=== PATIENT | male | born 1970 | race Caucasian/White ===

== ENCOUNTER → 2023-11-01 15:07 | Outpatient (REF) | payer OTHER, SELFPAY | LOC: RAD 15:07 | PROVIDERS: ATTENDING PHYSICIAN Family Medicine | DX: K57.32 Diverticulitis of large intestine without perforation or abscess without bleeding (principal) | CPT/HCPCS: 74178; Q9967 ==

== ENCOUNTER → 2024-02-19 12:21 | Outpatient (REF) | payer OTHER, SELFPAY | LOC: RAD 12:21 | PROVIDERS: ATTENDING PHYSICIAN Internal Medicine Gastroenterology; FAMILY PHYSICIAN Family Medicine | DX: R10.9 Unspecified abdominal pain (principal) | CPT/HCPCS: 74018 ==

== ENCOUNTER → 2024-05-07 11:10 | Outpatient (REF) | payer OTHER, SELFPAY | LOC: RAD 11:10 | PROVIDERS: ATTENDING PHYSICIAN Chiropractor Rehabilitation; FAMILY PHYSICIAN Family Medicine | DX: S13.8XXA Sprain of joints and ligaments of other parts of neck, initial encounter (principal) | CPT/HCPCS: 72040 ==

== ENCOUNTER → 2025-01-23 07:31 | Outpatient (REF) | payer OTHER, SELFPAY | LOC: EMG 07:31 | PROVIDERS: ATTENDING PHYSICIAN Orthopaedic Surgery; FAMILY PHYSICIAN Family Medicine | DX: R20.0 Anesthesia of skin (principal) | CPT/HCPCS: 95886; 95911 ==

== ENCOUNTER → 2025-06-25 09:44 | Outpatient (REF) | payer OTHER, SELFPAY | LOC: PAVMRI 09:44 | PROVIDERS: ATTENDING PHYSICIAN Chiropractor; FAMILY PHYSICIAN Family Medicine | DX: M54.50 Low back pain, unspecified (principal) | CPT/HCPCS: 72148 ==